=== PATIENT | female | born 2000 | race Caucasian/White ===

== ENCOUNTER 2025-03-06 13:28 | Day surgery (SDC) | payer OTHER, SELFPAY ==
--- OUTSIDE RECORDS SUMMARY | 2025-03-02 10:20 | XMS_ITS ---
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 Role Phone [facility] Primary Care Provider [facility] Unavailable Unavailable Allergies Allergen (clinical drug ingredient) Drug/Non Drug Allergy documented on EMR Reaction Allergy Type Onset Date Status Substance with sulfonamide structure and antibacterial mechanism of action (substance) Sulfa Antibiotics Unknown Drug Allergy Active REASON FOR VISIT weight management Medications Medication SIG (Take, Route, Frequency, Duration) Notes Start Date End Date Status Phentermine HCl 37.5 MG Tablet TAKE 1 TABLET BY MOUTH ONCE DAILY FOR 30 DAYS Oral; Duration: 30 Days 03/02/2025 04/01/2025 Active Depo-Provera 150 MG/ML Suspension 1 mL Intramuscular Active Tirzepatide 10 MG/0.5ML Solution Auto-injector as directed Subcutaneous Ac tive Wegovy 0.25 MG/0.5ML Solution Auto-injector 0.5 mg Subcutaneous weekly; Duration: 30 days Not-Taking Zepbound 15 MG/0.5ML Solution Auto-injector 15 mg Subcutaneous weekly; Duration: 30 days 10/06/2023 Not-Taking Social History Tobacco Use: Social History Observation Description Date Details (start date - stop date) Never Smoker NA - NA Social History Depression Screening Social Info Question Answer Notes depression screening findings Findings Negative (0 -4) PHQ-9 Little interest or p mike in doing things Not at all Feeling down, depressed, or hopeless Not at all Trouble falling or staying asleep, or sleeping t oo much Not at all Feeling tired or having little energy Not at all Poor appetite or overeating Not at all Feeling bad about yourself, or that you are a failure, or have let yourself or your family down Not at all Trouble concentrating on thi ngs, such as reading the newspaper or watching television Not at all Moving or speaking so slowly that other people could have noticed. Or the opposite ? being so fidgety or restless that you have been moving around a lot more than usual Not at all Thoughts that you would be b vidya off , or of hurting yourself in some way Not at all Total Score 0 Tobacco Use: Social Info Question Answer Notes Tobacco Control (Standard) Tobacco use: Nonsmoker Section Notes: Depression screen completeed 12/01/2023 score 0, PHQ9 03/03/2025 Problems Problem Type SNOMED Code ICD Code Onset Dates Problem Status W/U Status Risk Notes Problem Morbid obesity with body mass index (BMI) of 40.0 or higher (E66.01) Active confirmed Vital Signs Blood pressure systolic 113 mm Hg 03/02/20 25 Blood pressure diastolic 68 mm Hg 025 Heart Rate 92 /min 03/02/2025 Respiratory Rate 18 /min 03/02/2025 Height 63 in 03/02/2025 Weight 271 lbs 03/02/2025 BMI 48 kg/m2 03/02/2025 Oximetry 99 % 03/02/2025 Height-cm 160.02 cm 03/02/2025 Weight-kg 122.92 kg 03/02/2025 Encounters Encounter Location Date Provider Diagnosis [facility] Office [address] [place] [phone] 03/02/2025 Sudha Choe Weight gain R63.5 ; Morbid obesity with body mass index (BMI) of 40.0 or higher E66.01 and Depression screen Z13.31 Assessments Encounter Date Diagnosis (ICD Code) Assessment Notes Treatment Notes Treatment Clinical Notes Section Notes 03/02/2025 Weight gain (ICD-10 - R63.5) 03/02/2025 Morbid obesity with body mass index (BMI) of 40.0 or higher (ICD-10 - E66.01) Questions asked and answered; discharged to home. 03/02/2025 Depression screen (ICD-10 - Z13.31) 03/02/2025 Other Questions asked and answered; discharged to home. Plan Of Treatment Medication Medication Name Sig Start Date Stop Date Notes Phentermine HCl 37.5 MG Tablet TAKE 1 TA BLET BY MOUTH ONCE DAILY FOR 30 DAYS Oral; Duration: 30 Days 03/02/2025 04/01/2025 Treatment Notes Assessment Notes Morbid obesity with body mas s index (BMI) of 40.0 or higher Questions asked and answered; discharged to home. Other Questions asked and answered; discharged to home. Next Appt Details Follow Up: 4 Weeks, Reason: recheck Provider Name:Sudha Choe, 04/13/2025 03:20:00 PM, [address], [place], [phone], History and Physical Notes * Examination Category Sub-Category Detail Notes Category Not es General Examination GENERAL APPEARANCE: alert, w ell hydrated, in no distress, converses well HEAD: normocephalic, atrau matic EYES: PERRL; normal conjun ctiva EARS: ... NECK/THYROID: neck supple, full ra nge of motion, no JVD, without thyromegaly or masses HEART: Regular rate and rhy thm, S1 S2 normal LUNGS: clear to auscultatio n bilaterally, no wheezes, rales, or rhonchi NEUROLOGIC: alert and oriented, cerebellar function normal, cognitive exam grossly normal, gait normal SKIN: warm and dry EXTREMITIES: no clubbing, cyanosi s, or edema. 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 * ROS: G eneral - Multi System: Constitutional R eportsrecent weight gain . * Medical History: Chronic ear infections Medical History Verified * Pulp Roller History: D ate of Last Period L MP 5 years ago. * Surgical History: right arm surgery tonsillectomy and adenoidectomy Surgical History verified. * Hospitalization/Major Diagno stic Procedure: Denies Past Hospitalization. * Family History: F ather: alive. M other: alive. F amily History Verified.. * Social History: T obacco Use: T obacco Control (Standard) T obacco use: N onsmoker D epression Screening: P HQ-9 L ittle interest or pleasure in doing things?Not at all F eeling down, depressed, or hopeless N ot at all T rouble falling or staying asleep, or sleeping too much N ot at all F eeling tired or having little energy N ot at all P oor appetite or overeating N ot at all F eeling bad about yourself, or that you are a failure, or have let yourself or your family down N ot at all T rouble concentrating on things, such as reading the newspaper or watching television N ot at all M oving or speaking so slowly that other people could have noticed. Or the opposite ? being so fidgety or restless that you have been moving around a lot more than usual N ot at all T houghts that you would be better off , or of hurting yourself in some way N ot at all T otal Score 0 Depression screening findings F indings N egative (0-4) S ocial History Verified. D epression screen completeed 12/01/2023 score 0, PHQ9 03/03/2025. * Medications: T akingTirzepatide 10 MG/0.5ML Solution Auto-injector as directed Subcutaneous Depo-Provera 150 MG/ML Suspension 1 mL Intramuscular Taking Tirzepatide 10 MG/0.5ML Solution Auto-injector as directed Subcutaneous Taking Depo-Provera 150 MG/ML Suspension 1 mL Intramuscular Not-TakingZepbound 15 MG/0.5ML Solution Auto- injector 15 mg Subcutaneous weekly Wegovy 0.25 MG/0.5ML Solution Auto-injector 0.5 mg Subcutaneous weekly Not-Taking Zepbound 15 MG/0.5ML Solution Auto-injector 15 mg Subcutaneous weekly Not-Taking Wegovy 0.25 MG/0.5ML Solution Auto-injector 0.5 mg Subcutaneous weekly * Allergies: S ulfa AntibioticsyesAllergies Verified. Objective: * Vitals: H t: 63 in, Wt:271lbs, Wt-k.92 kg, BMI:48Index, BP:113/68mm Hg, HR:92/min, RR:18/min, Oxygen sat %:99%, O2 Source: RA, Pain scale: 0 1-10, Ht-cm: 160.02 cm. * Examination: G eneral Examination: GENERAL APPEARANCE: a lert, well hydrated, in no distress, converses well. HEAD: n ormocephalic, atraumatic. EYES: P ERRL; normal conjunctiva. EARS: . ... NECK/THYROID: n ced supple, full range of motion, no JVD, without thyromegaly or masses. SKIN: w arm and dry. HEART: R egular rate and rhythm, S1 S2 normal. LUNGS: c lear to auscultation bilaterally, no wheezes, rales, or rhonchi. EXTREMITIES: n o clubbing, cyanosis, or edema.. NEUROLOGIC: a lert and oriented, cerebellar function normal, cognitive exam grossly normal, gait normal. PSYCH: a lert, oriented, cognitive function intact, cooperative with exam, good eye contact, mood/affect full range, speech clear. Assessment: * Assessment: 1. W eight gain - R63.5 (Primary) 2 . M orbid obesity with body mass index (BMI) of 40.0 or higher - E66.01 3 . D epression screen - Z13.31 ? Plan: * Treatment: 2. O thers Notes: Questions asked and answered; discharged to home. * Procedure Codes: 3 078F DIAST BP < 80 MM [id number] SYST BP LT 130 MM [id number] BRIEF EMOTIONAL/BEHAV ASSMT * Preventive Medicine: Screenings: D EPRESSION SCREENING: Date of most recent screenin 03/03/2025 The patient denies: a nxiety, depressed mood, difficulty sleeping, lack of energy, lack of interest in things that were enjoyable, poor appetite, sadness, thoughts of harming him/herself, thought of harming someone else, trouble concentrating, weight gain, weight loss, any depressive symptoms at this time Suicidal ideation: h as never been expressed/considered Homicidal ideation: h as never been expressed/considered PHQ inventory: w ith score of 0-4 V ACCINATIONS: Influenza vaccinations: i s rarely done Refuses * Follow Up: 4 Weeks (Reason: recheck) Billing Information: * Visit Code: 29124 Office Visit, Est Pt., Level 3. * Procedure Codes: 3078F DIAST BP < 80 MM HG. 3074F SYST BP LT 130 MM HG. 35058 BRIEF EMOTIONAL/BEHAV ASSMT. Care Plan Details* * Electronic signature of Fredy Choe APN on 03/06/2025 at 01:47 PM CDT Sign off status: Pending * Provider: Niurka Choe FARMWORKER FRUIT Date: 03/02/2025 Generated for Nelli moreira/Syed/Linhitting on: 03/06/2025 01:47 PM CDT
[2025-03-06] VITALS (7 sets, daily range): BP systolic 108–158; BP diastolic 45–108; PULSE 80–97; RESP 16–20; TEMP 36.4–36.8; O2SAT 93–99
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
--- OUTSIDE RECORDS SUMMARY | 2025-03-06 13:47 | XMS_ITS | Patient Health Record ---
Author Organization [facility] Address [address] [place] [address] Care Team Providers Care Health Care Coach Name Role Phone [facility] Primary Care Provider [facility] Unavailable Unavailable Allergies Allergen (clinical drug ingredient) Drug/Non Drug Allergy documented on EMR Reaction Allergy Type Onset Date Status Substance with sulfonamide structure and antibacterial mechanism of action (substance) Sulfa Antibiotics Unknown Drug Allergy Active Reason For Referral No Information Medications Medication SIG (Take, Route, Frequency, Duration) [...] Subcutaneous weekly; Duration: 30 days 10/06/2023 Not-Taking Immunizations Vaccine Route Administration Date Status Comme nts Flucelvax Trivalent, Syringe 0.5 mL, PF Unknown 024 Refused Social History Tobacco Use: Social History Observation [...] screen completeed 12/01/2023 score 0, PHQ9 03/03/2025 Depression screen completeed 11/18/2022 score 0 Depression screen completeed 11/18/2022 score 0 Depression screen completeed 11/18/2022 score 0 Depression screen completeed 11/18/2022 score 0 Depression screen completeed 11/18/2022 score 0 Depression screen completeed 11/18/2022 score 0 Depression screen completeed 11/18/2022 score 0 Depression screen completeed 12/01/2023 score 0 Depression screen completeed 12/01/2023 score 0 Depression screen completeed 12/01/2023 score 0 Depression screen completeed 12/01/2023 score 0 Depression screen completeed 12/01/2023 score 0 Depression screen completeed 12/01/2023 score 0 Depression screen completeed 11/18/2022 score 0 Depression screen completeed 11/18/2022 score 0 Depression screen completeed 12/01/2023 score 0 Problems Problem Type SNOMED Code ICD Code Onset Dates Problem Status W/U Status Risk Notes Problem Obesity (018078625) Obesity (BMI 30-39.9) (E66.9) Active confirmed Problem Morbid obesity (334304235) Obesity, Class III, BMI 40-49.9 (morbid obesity) (E66.01) Active confirmed Problem Insulin resistance (474042559) Insulin resistance (E88.81) Active confirmed Problem Morbid obesity (547568942) Morbid obesity (E66.01) Active confirmed Problem Body mass index 30.00 to 34.99 (81832178348846 7) Body mass index [BMI] 33.0-33.9, adult (Z68.33) Active confirmed Problem Body mass index 35.00 to 39.99 (62510051695849 5) Body mass index [BMI] 38.0-38.9, adult (Z68.38) Active confirmed Problem Body mass index 40+ - severely obese (791436537) Body mass index [BMI] 45.0-49.9, adult (Z68.42) Active confirmed Problem Body mass index 40+ - morbidly obese (057388212) Body mass index [BMI] 50.0-59.9, adult (Z68.43) Active confirmed Problem Morbid obesity (887806388) Morbid obesity with body mass index (BMI) of 40.0 or higher (E66.01) Active confirmed Problem Body mass index 40+ - severely obese (268164145) Body mass index [BMI] 40.0-44.9, adult (Z68.41) Active confirmed Vital Signs Heart Rate 92 /min 03/02/2025 Temperature 97.3 degrees Fahrenheit 06/27/2024 Respiratory Rate 18 /min 03/02/2025 Height-cm 160.02 cm 03/02/2025 Blood pressure diastolic 68 mm Hg 03/02/2025 Oximetry 99 % 03/02/2025 Weight-kg 122.92 kg 03/02/2025 Height 63 in 03/02/2025 Blood pressure systolic 113 mm Hg 03/02/2025 Weight 271 lbs 03/02/2025 BMI 48 kg/m2 03/02/2025 Encounters Encounter Location Date Provider Diagnosis [facility] [address] [address] 03/02/2025 Sudha Choe Weight gain R63.5 ; Morbid obesity with body mass index (BMI) of 40.0 or higher E66.01 and Depression screen Z13.31 [facility] [address] [address] 04/12/2024 Sudha Choe Obesity (BMI 30-39.9 ) E66.9 and Insulin resistance E88.81 [facility] [address] [address] 05/19/2024 [facility] Immunization not carried out because of patient refusal Z28.21 and Obesity (BMI 30-39.9) E66.9 [facility] [address] [address] 06/27/2024 [facility] Obesity (BMI 30-39.9 ) E66.9 Assessments Encounter Date Diagnosis (ICD Code) Assessment Notes Treatment Notes Treatment Clinical Notes Section Notes 04/12/2024 Obesity (BMI 30-39.9) (ICD-10 - E66.9) Discussed with the diet, increase water intake, increase activity, decrease calorie intake, take medication as directed; phentermine e script to patient pharmacy. Patient to lose minimum of 4 pounds and return to clinic 1 month and prn. Pts questions asked and answered. Discharged to home. 04/12/2024 Insulin resistance (ICD-10 - E88.81) zepbound resume when able 05/19/2024 Immunization not carried out because of patient refusal (ICD-10 - Z28.21) 05/19/2024 Obesity (BMI 30-39.9) (ICD-10 - E66.9) Discussed with the diet, increase water intake, increase activity, decrease calorie intake, take medication as directed; phentermine e script to patient pharmacy. Patient to lose minimum of 4 pounds and return to clinic 1 month and prn. Pts questions asked and answered. Discharged to home. 06/27/2024 Obesity (BMI 30-39.9) (ICD-10 - E66.9) Discussed with the diet, increase water intake, increase activity, decrease calorie intake, take medication as directed; phentermine e script to patient pharmacy. Patient to lose minimum of 4 pounds and return to clinic 1 month and prn. Pts questions asked and answered. Discharged to home. 03/02/2025 Weight gain (ICD-10 - R63.5) 03/02/2025 Morbid obesity with body mass index (BMI) of 40.0 or higher (ICD-10 - E66.01) Questions asked and answered; discharged to home. 03/02/2025 Depression screen (ICD-10 - Z13.31) 03/02/2025 Other Questions asked and answered; discharged to home. 04/12/2024 Other Questions asked and answered; discharged to home. 05/19/2024 Other Questions asked and answered; discharged to home. 06/27/2024 Other Questions asked and answered; discharged to home. Plan Of Treatment Pending Test Test Name Order Date Wrist AP/Lateral Left-[id number] 11/18/2022 Next Appt Details Provider Name:Sudha Choe, 04/13/2025 03:20:00 PM, [address] [place] [address], [place], [address], Insurance Providers Payer Name Payer Address Payer Phone Subscriber Number Group Number Insured Name Patient Relationship to Insured Coverage Start Date Coverage End Date [employer] [address] [address] [place] [address] [id number] [id number] Jordan Self - patient is the insured Medical (General) History Medical History History ICD Code chronic ear infections Surgical History Surgery Date(Month/Year) right arm surgery tonsillectomy and adenoidectomy
[2025-03-06] MEDS: HYDROmorphone 0.5 MG/0.5 ML INJ 1 MG IVP ×2 (13:55→14:43)
[2025-03-06] MEDS: ondansetron 2 mg/ML SDV 2 mL 4 MG IVP (13:55)
[2025-03-06] MEDS: propofol 10 mg/mL SDV 20 mL 100 MG IVP (14:35)
--- NOTE | 2025-03-06 14:36 | PC.NURSE ---
PROPOFOL ADMINISTERED BY DR SWIFT A TOTAL OF 125 MG GIVEN. 75 MG WASTED WITH HANNAH KO.
--- NOTE | 2025-03-06 14:59 | PC.PHAR ---
Patient was on phemtermine 37.50 but states she ihasn't been taking it . Patient states she is taking Semiglutide for weight loss. Patient gets it through [facility] from Sandhya Chand [phone]. I tried calling to get prescription information but the phone is busy .
--- NOTE | 2025-03-06 15:09 | PC.PHAR ---
talked with Sandhya Chand , she stated patient received Tirzepitide and she is self administrating her own dosage and wasn't tej what the Patient started at . Trizepitide is 20mg per ml .
--- NOTE | 2025-03-06 15:31 | XR_ITS ---
Exam: XR wrist RT 2V [id number] Date/Time of Exam: 03/06/2025 2:16 PM Reason For Exam: POST REDUCTION DLP: Compared to initial fracture images performed on 03/06/2025 at 1:42 p.m. There is significantly less dorsal angulation of the distal fracture fragment of the radius. There is still significant dorsal displacement with about 50% apposition at the fracture site. IMPRESSION: 1. Fractured distal radius. There is still significant dorsal displacement of the distal fragment with about 50% apposition. Less angulation than noted on initial radiographs MTDD
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
[2025-03-06 15:44] LABS: OR HCG Qualitative Urine Negative (Negative)
--- NOTE | 2025-03-06 15:49 | W.PM.OPSUD ---
Surgery/Procedure H&P Update DATE OF PROCEDURE: March 06, 2025 DATE H&P PERFORMED: 03/06/25 PRIMARY INDICATION FOR PROCEDURE: Fracture distal right radius that is angulated and displaced. PLANNED PROCEDURE: Operation Date: 03/06/25 15:35 Proposed Procedures p Closed Reduction Percutaneous Pin Wrist(Right) - Joe John MD
--- NOTE | 2025-03-06 16:00 | ANES.PROC ---
Anesthesia Procedures Procedure/Date: 03/06/25 R supraclavicular block for post operative pain control Nerve Block ^: Nerve Block 1: Main Anesthesia: other (100 mcg fentanyl and 2 mg Versed) Time Out Performed: Yes Consent: requested by attending/covering physician and from patient Laterality: Right Nerve block location: supraclavicular Anesthesia monitors applied: pulse oximetry, EKG, BP cuff and oxygen Nerve block position: supine Anesthetic Used: ropivicaine 0.5% Amount of anesthesia used (mL): 25 Ultrasound used to: recognize landmarks Nerve Stimulator Used?: Yes Interscalene/Femoral BLK: other needle (pjunk 4inch ) Injection: neg aspiration of heme Patient Tolerated Procedure: well Complications: none Additional Comments: decadron 4mg added to block
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
[2025-03-06] MEDS: neomycin-poly-bacitracin oint 28 gm 1 APPLIC TOPICAL (17:34)
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
== END 2025-03-06 18:10 | disposition home or self-care (01) ==
LOC: ER 14:39 → OR 14:51
PROVIDERS: Emergency Provider Emergency Medicine; Family Provider Nurse Practitioner Family; PCP Nurse Practitioner Family; Visit Provider Orthopaedic Surgery
PROC: (CPT 25606; principal; 2025-03-06 15:25)
DX: S52.501A Unspecified fracture of the lower end of right radius, initial encounter for closed fracture (principal); V43.52XA Car driver injured in collision with other type car in traffic accident, initial encounter
CPT/HCPCS: 25606; 64415; 71045; 73100; 73110; 81025; 99291; C1713; J1100; J1171; J2405; J2704; J7030

== ENCOUNTER → 2025-03-14 11:28 | Outpatient (BNVA) | payer OTHER, SELFPAY | PROVIDERS: Family Provider Nurse Practitioner Family; PCP Nurse Practitioner Family; Visit Provider Orthopaedic Surgery | DX: S62.101A Fracture of unspecified carpal bone, right wrist, initial encounter for closed fracture (principal); V49.9XXA Car occupant (driver) (passenger) injured in unspecified traffic accident, initial encounter; E28.2 Polycystic ovarian syndrome | CPT/HCPCS: 73110 ==

== ENCOUNTER → 2025-04-04 09:13 | Outpatient (BNVA) | payer OTHER, SELFPAY | PROVIDERS: Family Provider Nurse Practitioner Family; PCP Nurse Practitioner Family; Visit Provider Orthopaedic Surgery | DX: S62.101G Fracture of unspecified carpal bone, right wrist, subsequent encounter for fracture with delayed healing (principal); X58.XXXD Exposure to other specified factors, subsequent encounter | CPT/HCPCS: 73110 ==

== ENCOUNTER → 2025-05-02 08:41 | Outpatient (BNVA) | payer OTHER, SELFPAY | PROVIDERS: Family Provider Nurse Practitioner Family; PCP Nurse Practitioner Family; Visit Provider Orthopaedic Surgery | DX: S62.101G Fracture of unspecified carpal bone, right wrist, subsequent encounter for fracture with delayed healing (principal); X58.XXXD Exposure to other specified factors, subsequent encounter | CPT/HCPCS: 73110 ==

== ENCOUNTER 2025-05-02 10:53 | Outpatient (CLI) | payer OTHER, SELFPAY | END 2025-05-02 10:54 | disposition home or self-care (01) | LOC: SPT 10:53 | PROVIDERS: Family Provider Nurse Practitioner Family; PCP Nurse Practitioner Family; Visit Provider Orthopaedic Surgery | DX: Z46.89 Encounter for fitting and adjustment of other specified devices (principal); M25.531 Pain in right wrist | CPT/HCPCS: L3908 ==

== ENCOUNTER 2025-05-09 15:03 | Outpatient (RCR) | payer OTHER, SELFPAY | END 2025-05-12 23:59 | disposition home or self-care (01) | LOC: SOT 15:03 | PROVIDERS: Family Provider Nurse Practitioner Family; PCP Nurse Practitioner Family; Visit Provider Orthopaedic Surgery | DX: S62.101G Fracture of unspecified carpal bone, right wrist, subsequent encounter for fracture with delayed healing (principal); X58.XXXD Exposure to other specified factors, subsequent encounter | CPT/HCPCS: 97110; 97167 ==

== ENCOUNTER 2025-05-13 05:00 | Outpatient (RCR) | payer OTHER, SELFPAY | END 2025-06-11 23:59 | disposition home or self-care (01) | LOC: SOT 05:00 | PROVIDERS: PCP Nurse Practitioner Family; Visit Provider Orthopaedic Surgery | DX: S62.101G Fracture of unspecified carpal bone, right wrist, subsequent encounter for fracture with delayed healing (principal); X58.XXXD Exposure to other specified factors, subsequent encounter | CPT/HCPCS: 97022; 97110; 97140 ==

== ENCOUNTER → 2025-05-29 11:17 | Outpatient (BNVA) | payer OTHER, SELFPAY | PROVIDERS: Family Provider Nurse Practitioner Family; PCP Nurse Practitioner Family; Visit Provider Orthopaedic Surgery | DX: S62.101G Fracture of unspecified carpal bone, right wrist, subsequent encounter for fracture with delayed healing (principal); X58.XXXD Exposure to other specified factors, subsequent encounter | CPT/HCPCS: 73110 ==

== ENCOUNTER 2025-06-12 05:00 | Outpatient (RCR) | payer OTHER, SELFPAY | END 2025-07-12 23:59 | disposition home or self-care (01) | LOC: SOT 05:00 | PROVIDERS: PCP Nurse Practitioner Family; Visit Provider Orthopaedic Surgery | DX: S62.101G Fracture of unspecified carpal bone, right wrist, subsequent encounter for fracture with delayed healing (principal); X58.XXXD Exposure to other specified factors, subsequent encounter | CPT/HCPCS: 97022; 97110 ==